=== PATIENT | male | born 1940 | race Caucasian/White ===

== ENCOUNTER 2021-08-01 08:46 | Inpatient (IN) | payer MEDICARE ==
[2021-08-01 09:44] LABS: Prothrombin Time 10.9 sec (9.5-12.1)
[2021-08-01 09:48] LABS: #Monocytes 0.6 10x3/uL (0.0-1.1); #Neutrophils 3.9 10x3/uL (1.5-8.4); %Basophils 0.2 % (0.0-2.0); %Lymphocytes 4.9 % (18.0-47.0); %Neutrophils 82.5 % (40.0-75.0); Hemoglobin 12.3 g/dL (13.5-17.5); Mean Corpuscular HGB CONC 33.7 g/dL (32.0-36.0); Mean Corpuscular Hemoglobin 31.7 pg (27.0-33.0); Mean Corpuscular Volume 94.1 fl (81.2-95.1); Mean Platelet Volume 11.4 fl (7.4-10.4); Platelet Count 87 10x3/uL (150-450); RBC Distribution Width 12.7 % (11.5-14.5); Red Blood Cell (RBC) Count 3.88 10x6/uL (4.32-5.72); White Blood Cell (WBC) Count 4.7 10x3/uL (3.5-10.5)
[2021-08-01 09:52] LABS: ALT (SGPT) 17 U/L (8-55); AST (SGOT) 27 U/L (5-34); Albumin 4.2 g/dL (3.4-4.8); Alkaline Phosphatase 66 U/L (40-110); Anion Gap 22 mmol/L (10-20); Bilirubin, Total 0.4 mg/dL (0.2-1.2); CK (CPK) 176 U/L (30-200); Calc. Creatinine Clearance 0 mL/min (70-130); Calcium 8.6 mg/dL (7.8-10.44); Carbon Dioxide 12 mmol/L (23-31); Chloride 105 mmol/L (98-107); Globulin 2.8 g/dL (2.4-3.5); Glucose 104 mg/dL (83-110); Lipase 65 U/L (8-78); Magnesium 2.7 mg/dL (1.6-2.6); Potassium 6.1 mmol/L (3.5-5.1); Sodium 133 mmol/L (136-145)
[2021-08-01 10:03] LABS: BUN (Urea Nitrogen) 151 mg/dL (8.4-25.7)
[2021-08-01 10:13] LABS: Platelet Morphology Comment Appears Decreased; RBC Morphology Normal
[2021-08-01] MEDS ORDERED: Calcium Gluc 4.6 MEQ/10 ML (100 MG/ML) ONE (10:44)
[2021-08-01] MEDS ORDERED: Sodium Bicarb 50 MEQ/50 ML VIAL ONE (10:45)
[2021-08-01] MEDS ORDERED: Sodium Bicarb 50 MEQ/50 ML Abboject 8.4% SYRINGE ONE (10:45)
[2021-08-01] MEDS ORDERED: Insulin Regular 300 UNITS/3 ML VIAL ONE (10:45)
[2021-08-01 12:28] LABS: Bilirubin Neg (Negative); Blood, Urine Negative (Negative); Clarity Clear (Clear); Glucose, Urine (Dipstick) Normal (Negative); Ketone, Urine Negative (Negative); Leukocyte Negative (Negative); Nitrite Negative (Negative); Protein, Urine (Dipstick) Negative (Neg-Trace); Specific Gravity, Urine 1.015 (1.002-1.036); Urobilinogen Normal mg/dL (Less than 2)
[2021-08-01 13:18] LABS: SARS-CoV-2 NAA Rapid Test Not Detected (NotDetected)
[2021-08-01 14:32] VITALS: BMI 23.3
[2021-08-01] MEDS ORDERED: Acetaminophen 325 MG TAB PO PRN (16:10)
[2021-08-01 16:11] LABS: Anion Gap 19 mmol/L (10-20); Calc. Creatinine Clearance 17 mL/min (70-130); Calcium 9.4 mg/dL (7.8-10.44); Carbon Dioxide 15 mmol/L (23-31); Chloride 104 mmol/L (98-107); Glucose 112 mg/dL (83-110); Potassium 5.7 mmol/L (3.5-5.1); Sodium 132 mmol/L (136-145)
[2021-08-01 16:20] LABS: BUN (Urea Nitrogen) 135 mg/dL (8.4-25.7)
[2021-08-02 04:43] LABS: Platelet Count 84 10x3/uL (150-450)
[2021-08-02 04:44] LABS: Mean Corpuscular HGB CONC 34.2 g/dL (32.0-36.0); Mean Corpuscular Hemoglobin 31.8 pg (27.0-33.0); RBC Distribution Width 12.6 % (11.5-14.5); Red Blood Cell (RBC) Count 4.71 10x6/uL (4.32-5.72); White Blood Cell (WBC) Count 4.2 10x3/uL (3.5-10.5)
[2021-08-02 04:48] LABS: Anion Gap 20 mmol/L (10-20); Calc. Creatinine Clearance 19 mL/min (70-130); Calcium 9.6 mg/dL (7.8-10.44); Carbon Dioxide 15 mmol/L (23-31); Chloride 109 mmol/L (98-107); Glucose 134 mg/dL (83-110); Sodium 137 mmol/L (136-145)
[2021-08-02 04:52] LABS: Potassium 6.6 mmol/L (3.5-5.1)
[2021-08-02 04:59] LABS: BUN (Urea Nitrogen) 121 mg/dL (8.4-25.7)
[2021-08-02] MEDS: Levothyroxine Sodium 75 MCG TAB PO SCH (05:13)
[2021-08-02] MEDS ORDERED: Dextrose 50% Abboject 50 ML SYRINGE SLOW IVP PRN (05:45)
[2021-08-02 05:50] LABS: Platelet Morphology Comment Appears Decreased; RBC Morphology Normal
[2021-08-02 05:53] LABS: MDiff Complete? YES
[2021-08-02 05:57] LABS: Band 3 % (5-11); Lymphocytes 7 % (21-51); Monocytes 17 % (0-10); Neutrophil 73 % (42-75)
[2021-08-02] MEDS ORDERED: Insulin Regular 300 UNITS/3 ML VIAL IVP SCH (06:00)
[2021-08-02] MEDS ORDERED: Calcium Gluc 4.6 MEQ/10 ML (100 MG/ML) SLOW IVP SCH ×2 (06:00→08:00)
[2021-08-02] MEDS ORDERED: Albuterol Sulfate 2.5 mg/3 ml Neb NEB SCH (06:00)
[2021-08-02] MEDS ORDERED: Dextrose 10% in Water 250 ML IV SCH (06:30)
[2021-08-02] MEDS: Famotidine 20 MG TAB PO SCH (09:24)
[2021-08-02] MEDS: Sodium Chloride 0.45% 1,000 ML IV SCH ×2 (09:26→23:13)
[2021-08-02 10:34] LABS: Anion Gap 18 mmol/L (10-20); Calc. Creatinine Clearance 19 mL/min (70-130); Calcium 10.4 mg/dL (7.8-10.44); Carbon Dioxide 17 mmol/L (23-31); Chloride 106 mmol/L (98-107); Glucose 143 mg/dL (83-110); Potassium 5.6 mmol/L (3.5-5.1); Sodium 135 mmol/L (136-145)
[2021-08-02 10:43] LABS: BUN (Urea Nitrogen) 118 mg/dL (8.4-25.7)
[2021-08-02 18:07] LABS: Anion Gap 17 mmol/L (10-20); BUN (Urea Nitrogen) 124 mg/dL (8.4-25.7); Calc. Creatinine Clearance 21 mL/min (70-130); Calcium 9.6 mg/dL (7.8-10.44); Carbon Dioxide 19 mmol/L (23-31); Chloride 106 mmol/L (98-107); Glucose 142 mg/dL (83-110); Potassium 5.9 mmol/L (3.5-5.1); Sodium 136 mmol/L (136-145)
[2021-08-02] MEDS ORDERED: LOKELMA 10 GM PACKET PO SCH (18:45)
[2021-08-02] MEDS: Tamsulosin HCl 0.4 MG CAP PO SCH (21:14)
[2021-08-03] MEDS ORDERED: Albumin 25% 25 GM/100 ML BOT IVPB SCH ×2 (03:45→04:00)
[2021-08-03 04:33] LABS: Hemoglobin 13.5 g/dL (13.5-17.5); Mean Corpuscular Hemoglobin 31.6 pg (27.0-33.0); Platelet Count 63 10x3/uL (150-450); RBC Distribution Width 12.8 % (11.5-14.5); Red Blood Cell (RBC) Count 4.27 10x6/uL (4.32-5.72); White Blood Cell (WBC) Count 3.5 10x3/uL (3.5-10.5)
[2021-08-03 04:41] LABS: Anion Gap 17 mmol/L (10-20); BUN (Urea Nitrogen) 111 mg/dL (8.4-25.7); Calc. Creatinine Clearance 22 mL/min (70-130); Calcium 9.2 mg/dL (7.8-10.44); Carbon Dioxide 17 mmol/L (23-31); Chloride 106 mmol/L (98-107); Glucose 132 mg/dL (83-110); Potassium 5.7 mmol/L (3.5-5.1); Sodium 134 mmol/L (136-145)
[2021-08-03] MEDS ORDERED: Sodium Chloride 0.9% 500 ML IV SCH (05:45)
[2021-08-03] MEDS ORDERED: Sodium Bicarbonate 150 MEQ in Dextrose 5% in Water 1,000 ML IV ONE (05:45)
[2021-08-03] MEDS ORDERED: Sodium Bicarbonate 75 MEQ in Dextrose 5% in Water 500 ML IV SCH (06:00)
[2021-08-03 06:07] LABS: MDiff Complete? YES
[2021-08-03 06:08] LABS: RBC Morphology Normal
[2021-08-03 06:09] LABS: Platelet Morphology Comment Appears Decreased
[2021-08-03] MEDS: Levothyroxine Sodium 75 MCG TAB PO SCH (06:09)
[2021-08-03 06:10] LABS: Band 10 % (5-11); Eosinophils 1 % (0-10); Lymphocytes 10 % (21-51); Monocytes 19 % (0-10); Neutrophil 59 % (42-75)
[2021-08-03] MEDS ORDERED: LOKELMA 10 GM PACKET PO SCH (09:00)
[2021-08-03 10:23] LABS: Iron 51 ug/dL (65-175); Iron Binding Capacity, Total 206 mcg/dL (261-462)
[2021-08-03 10:23] LABS: Anion Gap 13 mmol/L (10-20); BUN (Urea Nitrogen) 106 mg/dL (8.4-25.7); Calc. Creatinine Clearance 24 mL/min (70-130); Calcium 8.8 mg/dL (7.8-10.44); Carbon Dioxide 19 mmol/L (23-31); Chloride 108 mmol/L (98-107); Glucose 124 mg/dL (83-110); Iron 49 ug/dL (65-175); Iron Binding Capacity, Total 210 mcg/dL (261-462); Potassium 5.1 mmol/L (3.5-5.1); Sodium 135 mmol/L (136-145)
[2021-08-03] MEDS: Famotidine 20 MG TAB PO SCH (10:35)
[2021-08-03] MEDS: Albumin 25% 25 GM/100 ML BOT IVPB SCH ×3 (10:37→21:03)
[2021-08-03] MEDS: Sodium Bicarbonate 75 MEQ in Dextrose 5% in Water 500 ML IV SCH (14:55)
[2021-08-03] MEDS: Tamsulosin HCl 0.4 MG CAP PO SCH (21:03)
[2021-08-04] MEDS: Sodium Bicarbonate 75 MEQ in Dextrose 5% in Water 500 ML IV SCH (00:27)
[2021-08-04 04:15] LABS: Hemoglobin 11.2 g/dL (13.5-17.5); Mean Corpuscular HGB CONC 35.4 g/dL (32.0-36.0); Mean Corpuscular Volume 90.3 fl (81.2-95.1); Mean Platelet Volume 11.1 fl (7.4-10.4); Platelet Count 66 10x3/uL (150-450); RBC Distribution Width 12.5 % (11.5-14.5); White Blood Cell (WBC) Count 2.7 10x3/uL (3.5-10.5)
[2021-08-04 04:17] LABS: Anion Gap 16 mmol/L (10-20); BUN (Urea Nitrogen) 68 mg/dL (8.4-25.7); Calc. Creatinine Clearance 32 mL/min (70-130); Calcium 9.3 mg/dL (7.8-10.44); Carbon Dioxide 24 mmol/L (23-31); Chloride 104 mmol/L (98-107); Glucose 113 mg/dL (83-110); Potassium 4.6 mmol/L (3.5-5.1); Sodium 139 mmol/L (136-145)
[2021-08-04] MEDS: Albumin 25% 25 GM/100 ML BOT IVPB SCH (05:07)
[2021-08-04] MEDS: Levothyroxine Sodium 75 MCG TAB PO SCH (06:26)
[2021-08-04 06:41] LABS: MDiff Complete? YES
[2021-08-04 06:42] LABS: Platelet Morphology Comment Appears Decreased
[2021-08-04 06:44] LABS: Band 6 % (5-11); Eosinophils 1 % (0-10); Lymphocytes 19 % (21-51); Monocytes 19 % (0-10); Neutrophil 55 % (42-75)
[2021-08-04 06:45] LABS: RBC Morphology Normal
[2021-08-04] MEDS: Famotidine 20 MG TAB PO SCH (08:59)
[2021-08-04] MEDS: Sodium Chloride 0.45% 1,000 ML IV SCH (18:27)
[2021-08-04] MEDS: Tamsulosin HCl 0.4 MG CAP PO SCH (20:43)
[2021-08-05 04:47] LABS: Anion Gap 16 mmol/L (10-20); BUN (Urea Nitrogen) 46 mg/dL (8.4-25.7); Calc. Creatinine Clearance 36 mL/min (70-130); Calcium 9.4 mg/dL (7.8-10.44); Carbon Dioxide 23 mmol/L (23-31); Chloride 104 mmol/L (98-107); Glucose 102 mg/dL (83-110); Potassium 4.4 mmol/L (3.5-5.1); Sodium 139 mmol/L (136-145)
[2021-08-05 04:48] LABS: Hemoglobin 11.8 g/dL (13.5-17.5); Mean Corpuscular HGB CONC 34.6 g/dL (32.0-36.0); Mean Corpuscular Hemoglobin 31.8 pg (27.0-33.0); Mean Corpuscular Volume 91.9 fl (81.2-95.1); Mean Platelet Volume 10.9 fl (7.4-10.4); Platelet Count 76 10x3/uL (150-450); RBC Distribution Width 12.7 % (11.5-14.5); Red Blood Cell (RBC) Count 3.71 10x6/uL (4.32-5.72); White Blood Cell (WBC) Count 5.3 10x3/uL (3.5-10.5)
[2021-08-05] MEDS: Levothyroxine Sodium 75 MCG TAB PO SCH (05:35)
[2021-08-05] MEDS: Sodium Chloride 0.45% 1,000 ML IV SCH ×2 (05:41→16:11)
[2021-08-05 06:44] LABS: MDiff Complete? YES
[2021-08-05 06:45] LABS: Platelet Morphology Comment Appears Decreased
[2021-08-05 06:46] LABS: Band 3 % (5-11); Eosinophils 1 % (0-10); Lymphocytes 16 % (21-51); Monocytes 21 % (0-10); Neutrophil 59 % (42-75)
[2021-08-05] MEDS: Famotidine 20 MG TAB PO SCH (09:55)
[2021-08-05] MEDS ORDERED: Polyethylene Glycol 3350 17 GM Packet PO SCH (12:00)
[2021-08-05] MEDS ORDERED: chlorproMAZINE HCl 25 MG TAB PO SCH (12:00)
[2021-08-05] MEDS ORDERED: Docusate 100 MG CAP PO SCH (12:00)
[2021-08-05] MEDS ORDERED: chlorproMAZINE HCl 25 MG TAB PO PRN (16:00)
[2021-08-05] MEDS: Tamsulosin HCl 0.4 MG CAP PO SCH (21:33)
[2021-08-06] MEDS ORDERED: Promethazine HCl 12.5 MG in Sodium Chloride 0.9% 50 ML IVPB SCH (01:45)
[2021-08-06 04:57] LABS: Anion Gap 16 mmol/L (10-20); BUN (Urea Nitrogen) 36 mg/dL (8.4-25.7); Calc. Creatinine Clearance 40 mL/min (70-130); Calcium 9.5 mg/dL (7.8-10.44); Carbon Dioxide 21 mmol/L (23-31); Chloride 105 mmol/L (98-107); Glucose 115 mg/dL (83-110); Potassium 4.8 mmol/L (3.5-5.1); Sodium 137 mmol/L (136-145)
[2021-08-06] MEDS: Levothyroxine Sodium 75 MCG TAB PO SCH (05:39)
[2021-08-06] MEDS: Sodium Chloride 0.45% 1,000 ML IV SCH (05:45)
[2021-08-06] MEDS: Famotidine 20 MG TAB PO SCH (08:30)
[2021-08-06] MEDS: Tamsulosin HCl 0.4 MG CAP PO SCH (21:06)
[2021-08-07] MEDS: Sodium Chloride 0.45% 1,000 ML IV SCH (01:56)
[2021-08-07 04:44] LABS: #Eosinphils 0.1 10x3/uL (0.0-0.5); #Monocytes 0.6 10x3/uL (0.0-1.1); #Neutrophils 4.3 10x3/uL (1.5-8.4); %Basophils 0.3 % (0.0-2.0); %Eosinophils 1.8 % (0.0-6.0); %Lymphocytes 17.2 % (18.0-47.0); %Neutrophils 69.9 % (40.0-75.0); Hemoglobin 12.3 g/dL (13.5-17.5); Mean Corpuscular HGB CONC 34.5 g/dL (32.0-36.0); Mean Corpuscular Hemoglobin 31.6 pg (27.0-33.0); Mean Corpuscular Volume 91.8 fl (81.2-95.1); Mean Platelet Volume 10.9 fl (7.4-10.4); RBC Distribution Width 12.5 % (11.5-14.5); Red Blood Cell (RBC) Count 3.89 10x6/uL (4.32-5.72); White Blood Cell (WBC) Count 6.1 10x3/uL (3.5-10.5)
[2021-08-07 04:45] LABS: Platelet Count 118 10x3/uL (150-450)
[2021-08-07 04:51] LABS: Anion Gap 16 mmol/L (10-20); BUN (Urea Nitrogen) 36 mg/dL (8.4-25.7); Calc. Creatinine Clearance 40 mL/min (70-130); Calcium 9.3 mg/dL (7.8-10.44); Carbon Dioxide 23 mmol/L (23-31); Chloride 104 mmol/L (98-107); Glucose 102 mg/dL (83-110); Potassium 4.5 mmol/L (3.5-5.1); Sodium 138 mmol/L (136-145)
[2021-08-07] MEDS: Levothyroxine Sodium 75 MCG TAB PO SCH (05:36)
[2021-08-07] MEDS: Famotidine 20 MG TAB PO SCH (10:12)
[2021-08-07] MEDS: Tamsulosin HCl 0.4 MG CAP PO SCH (21:14)
[2021-08-08 04:36] LABS: #Eosinphils 0.2 10x3/uL (0.0-0.5); #Monocytes 0.6 10x3/uL (0.0-1.1); #Neutrophils 2.9 10x3/uL (1.5-8.4); %Basophils 0.4 % (0.0-2.0); %Eosinophils 3.1 % (0.0-6.0); %Lymphocytes 26.2 % (18.0-47.0); %Monocytes 10.8 % (0.0-10.0); %Neutrophils 57.7 % (40.0-75.0); Hemoglobin 11.9 g/dL (13.5-17.5); Mean Corpuscular HGB CONC 34.8 g/dL (32.0-36.0); Mean Corpuscular Hemoglobin 32.4 pg (27.0-33.0); Mean Corpuscular Volume 93.2 fl (81.2-95.1); Mean Platelet Volume 10.6 fl (7.4-10.4); Platelet Count 141 10x3/uL (150-450); RBC Distribution Width 12.1 % (11.5-14.5); Red Blood Cell (RBC) Count 3.67 10x6/uL (4.32-5.72); White Blood Cell (WBC) Count 5.1 10x3/uL (3.5-10.5)
[2021-08-08 05:12] LABS: Anion Gap 14 mmol/L (10-20); BUN (Urea Nitrogen) 36 mg/dL (8.4-25.7); Calc. Creatinine Clearance 40 mL/min (70-130); Calcium 9.5 mg/dL (7.8-10.44); Carbon Dioxide 23 mmol/L (23-31); Chloride 105 mmol/L (98-107); Glucose 93 mg/dL (83-110); Potassium 4.4 mmol/L (3.5-5.1); Sodium 138 mmol/L (136-145)
[2021-08-08] MEDS: Levothyroxine Sodium 75 MCG TAB PO SCH (06:00)
[2021-08-08] MEDS: Famotidine 20 MG TAB PO SCH (09:42)
[2021-08-08] MEDS ORDERED: Polyethylene Glycol 3350 17 GM Packet PO PRN (09:47)
[2021-08-08 12:43] VITALS: BP 117/86; TEMP 96.1
[2021-08-08 22:18] LABS: SARS-CoV-2 PCR by NAA Not Detected (NotDetected)
== END 2021-08-08 14:25 | DRG 683 ==
LOC: CSHERS 08:46 → CSHIMCU 13:41 → CSHTELE 08-04 16:00
PROVIDERS: ADMIT Internal Medicine; ATTEND Internal Medicine
DX: N17.9 Acute kidney failure, unspecified (principal); E87.2 Acidosis; E87.1 Hypo-osmolality and hyponatremia; Z20.822 Contact with and (suspected) exposure to COVID-19; E87.5 Hyperkalemia; R33.9 Retention of urine, unspecified; N13.30 Unspecified hydronephrosis; I12.9 Hypertensive chronic kidney disease with stage 1 through stage 4 chronic kidney disease, or unspecified chronic kidney disease; N18.30 Chronic kidney disease, stage 3 unspecified; G40.909 Epilepsy, unspecified, not intractable, without status epilepticus; D63.1 Anemia in chronic kidney disease; D69.6 Thrombocytopenia, unspecified; R40.4 Transient alteration of awareness; R31.9 Hematuria, unspecified; Z79.899 Other long term (current) drug therapy; Z79.891 Long term (current) use of opiate analgesic; Z79.890 Hormone replacement therapy
CPT/HCPCS: 36415; 51702; 71045; 74176; 76770; 80048; 80053; 81003; 82533; 82550; 82607; 82746; 83540; 83550; 83690; 83735; 83880; 84153; 84443; 84484; 85025; 85060; 85610; 85730; 93005; 93010; 94640; 94760; 96374; 96375; J0610; J1815; J2550; J7030; J7060; J7070; J7611; P9047; Q0161; U0002; U0003; U0005

== ENCOUNTER 2021-09-03 08:33 | Inpatient (IN) | payer MEDICARE ==
[2021-09-03 09:51] LABS: #Basophils 0.1 10x3/uL (0.0-0.2); #Monocytes 1.8 10x3/uL (0.0-1.1); #Neutrophils 13.8 10x3/uL (1.5-8.4); %Basophils 0.4 % (0.0-2.0); %Eosinophils 0.1 % (0.0-6.0); %Lymphocytes 3.9 % (18.0-47.0); %Monocytes 10.6 % (0.0-10.0); %Neutrophils 82.7 % (40.0-75.0); Hemoglobin 12.4 g/dL (13.5-17.5); Mean Corpuscular HGB CONC 33.4 g/dL (32.0-36.0); Mean Corpuscular Hemoglobin 31.3 pg (27.0-33.0); Mean Corpuscular Volume 93.7 fl (81.2-95.1); Mean Platelet Volume 8.9 fl (7.4-10.4); Platelet Count 245 10x3/uL (150-450); RBC Distribution Width 12.3 % (11.5-14.5); Red Blood Cell (RBC) Count 3.96 10x6/uL (4.32-5.72); White Blood Cell (WBC) Count 16.6 10x3/uL (3.5-10.5)
[2021-09-03 10:06] LABS: Bilirubin Neg (Negative); Blood, Urine 150 (Negative); Clarity Cloudy (Clear); Glucose, Urine (Dipstick) Normal (Negative); Ketone, Urine Negative (Negative); Leukocyte 500 (Negative); Nitrite Negative (Negative); Protein, Urine (Dipstick) 500 mg/dl (Neg-Trace); Urobilinogen Normal mg/dL (Less than 2)
[2021-09-03 10:11] LABS: ALT (SGPT) 9 U/L (8-55); AST (SGOT) 26 U/L (5-34); Albumin 3.5 g/dL (3.4-4.8); Alkaline Phosphatase 63 U/L (40-110); Anion Gap 16 mmol/L (10-20); BUN (Urea Nitrogen) 28 mg/dL (8.4-25.7); Bilirubin, Total 0.4 mg/dL (0.2-1.2); CK (CPK) 39 U/L (30-200); Calc. Creatinine Clearance 0 mL/min (70-130); Calcium 9.4 mg/dL (7.8-10.44); Carbon Dioxide 22 mmol/L (23-31); Chloride 98 mmol/L (98-107); Globulin 3.2 g/dL (2.4-3.5); Glucose 106 mg/dL (83-110); Potassium 4.7 mmol/L (3.5-5.1); Protein, Total 6.7 g/dL (5.8-8.1); Sodium 131 mmol/L (136-145)
[2021-09-03 10:20] LABS: Bacteria/HPF 4+ HPF (None Seen); Squamous Epithelial None Seen HPF (0-3); WBC/HPF Greater than 50 HPF (0-3)
[2021-09-03] MEDS ORDERED: cefTRIAXone\\ROCEPHIN 2 GM VIAL ONE (11:36)
[2021-09-03] MEDS ORDERED: Ondansetron PF 4 MG/2 ML Vial IVP PRN (14:20)
[2021-09-03] MEDS ORDERED: Ondansetron ODT 4 MG TAB PO PRN (14:20)
[2021-09-03] MEDS ORDERED: Acetaminophen 325 MG TAB PO PRN (14:20)
[2021-09-03] MEDS ORDERED: Sodium Chloride 0.9% 1,000 ML IV SCH (14:30)
[2021-09-03] MEDS: Heparin 5,000 UNITS/ML VIAL SC SCH ×2 (14:48→20:59)
[2021-09-03 15:15] VITALS: BMI 22.6
[2021-09-03] MEDS: Tamsulosin HCl 0.4 MG CAP PO SCH (20:59)
[2021-09-04 00:15] LABS: SARS-CoV-2 PCR by NAA Not Detected (NotDetected)
[2021-09-04 04:31] LABS: #Neutrophils 7.5 10x3/uL (1.5-8.4); %Basophils 0.3 % (0.0-2.0); %Eosinophils 0.4 % (0.0-6.0); %Lymphocytes 13.8 % (18.0-47.0); %Monocytes 10.1 % (0.0-10.0); Hemoglobin 10.3 g/dL (13.5-17.5); Mean Corpuscular HGB CONC 33.2 g/dL (32.0-36.0); Mean Corpuscular Hemoglobin 31.2 pg (27.0-33.0); Mean Corpuscular Volume 93.9 fl (81.2-95.1); Platelet Count 210 10x3/uL (150-450); RBC Distribution Width 12.5 % (11.5-14.5); White Blood Cell (WBC) Count 10.1 10x3/uL (3.5-10.5)
[2021-09-04 04:39] LABS: Anion Gap 11 mmol/L (10-20); BUN (Urea Nitrogen) 24 mg/dL (8.4-25.7); Calc. Creatinine Clearance 39 mL/min (70-130); Calcium 8.4 mg/dL (7.8-10.44); Carbon Dioxide 25 mmol/L (23-31); Chloride 108 mmol/L (98-107); Glucose 95 mg/dL (83-110); Magnesium 2.1 mg/dL (1.6-2.6); Potassium 4.9 mmol/L (3.5-5.1); Sodium 139 mmol/L (136-145)
[2021-09-04] MEDS: Levothyroxine Sodium 75 MCG TAB PO SCH (06:29)
[2021-09-04] MEDS: Heparin 5,000 UNITS/ML VIAL SC SCH ×3 (09:36→20:47)
[2021-09-04] MEDS: Senokot S 8.6-50 MG TAB PO SCH ×2 (09:36→20:47)
[2021-09-04] MEDS: Polyethylene Glycol 3350 17 GM Packet PO SCH (09:37)
[2021-09-04] MEDS: cefTRIAXone\\ROCEPHIN 2 GM in Sodium Chloride 0.9% 100 ML IVPB SCH (15:17)
[2021-09-04] MEDS: Tamsulosin HCl 0.4 MG CAP PO SCH (20:47)
[2021-09-05 05:06] LABS: #Basophils 0.1 10x3/uL (0.0-0.2); #Eosinphils 0.1 10x3/uL (0.0-0.5); #Monocytes 0.8 10x3/uL (0.0-1.1); #Neutrophils 6.9 10x3/uL (1.5-8.4); %Basophils 0.6 % (0.0-2.0); %Eosinophils 0.7 % (0.0-6.0); %Lymphocytes 14.8 % (18.0-47.0); %Neutrophils 71.9 % (40.0-75.0); Hemoglobin 10.9 g/dL (13.5-17.5); Mean Corpuscular Hemoglobin 31.4 pg (27.0-33.0); Mean Corpuscular Volume 95.1 fl (81.2-95.1); Mean Platelet Volume 9.3 fl (7.4-10.4); Platelet Count 229 10x3/uL (150-450); RBC Distribution Width 12.5 % (11.5-14.5); Red Blood Cell (RBC) Count 3.47 10x6/uL (4.32-5.72); White Blood Cell (WBC) Count 9.7 10x3/uL (3.5-10.5)
[2021-09-05 05:09] LABS: Anion Gap 12 mmol/L (10-20); BUN (Urea Nitrogen) 18 mg/dL (8.4-25.7); Calc. Creatinine Clearance 50 mL/min (70-130); Calcium 8.5 mg/dL (7.8-10.44); Carbon Dioxide 25 mmol/L (23-31); Cardiac Risk 4.2 (Less than 4.5); Chloride 107 mmol/L (98-107); Cholesterol 123 mg/dl (< 200 Desired); Glucose 88 mg/dL (83-110); HDL Cholesterol 29 mg/dL (>60 Neg Risk); LDL Cholesterol, Calculated 73 mg/dL; Potassium 4.1 mmol/L (3.5-5.1); Sodium 140 mmol/L (136-145); Triglycerides 106 mg/dL (Less than 150)
[2021-09-05] MEDS: Levothyroxine Sodium 75 MCG TAB PO SCH (05:18)
[2021-09-05] MEDS: Polyethylene Glycol 3350 17 GM Packet PO SCH (10:16)
[2021-09-05] MEDS: Heparin 5,000 UNITS/ML VIAL SC SCH ×3 (10:16→20:59)
[2021-09-05] MEDS: Senokot S 8.6-50 MG TAB PO SCH ×2 (10:16→20:58)
[2021-09-05 13:03] LABS: Hemoglobin A1c 5.5 % (4.0-6.0)
[2021-09-05] MEDS: cefTRIAXone\\ROCEPHIN 2 GM in Sodium Chloride 0.9% 100 ML IVPB SCH (15:19)
[2021-09-05] MEDS: Tamsulosin HCl 0.4 MG CAP PO SCH (20:58)
[2021-09-06] MEDS: Levothyroxine Sodium 75 MCG TAB PO SCH (05:18)
[2021-09-06 06:07] LABS: Anion Gap 15 mmol/L (10-20); BUN (Urea Nitrogen) 19 mg/dL (8.4-25.7); Calc. Creatinine Clearance 48 mL/min (70-130); Calcium 8.8 mg/dL (7.8-10.44); Carbon Dioxide 25 mmol/L (23-31); Chloride 107 mmol/L (98-107); Glucose 88 mg/dL (83-110); Potassium 4.8 mmol/L (3.5-5.1); Sodium 142 mmol/L (136-145)
[2021-09-06 06:30] LABS: #Basophils 0.1 10x3/uL (0.0-0.2); #Eosinphils 0.1 10x3/uL (0.0-0.5); #Monocytes 0.7 10x3/uL (0.0-1.1); #Neutrophils 5.6 10x3/uL (1.5-8.4); %Basophils 0.8 % (0.0-2.0); %Eosinophils 1.3 % (0.0-6.0); %Lymphocytes 19.5 % (18.0-47.0); %Neutrophils 66.6 % (40.0-75.0); Hemoglobin 11.4 g/dL (13.5-17.5); Mean Corpuscular HGB CONC 32.9 g/dL (32.0-36.0); Mean Corpuscular Hemoglobin 31.1 pg (27.0-33.0); Mean Corpuscular Volume 94.5 fl (81.2-95.1); Mean Platelet Volume 9.2 fl (7.4-10.4); Platelet Count 245 10x3/uL (150-450); RBC Distribution Width 12.6 % (11.5-14.5); Red Blood Cell (RBC) Count 3.66 10x6/uL (4.32-5.72); White Blood Cell (WBC) Count 8.5 10x3/uL (3.5-10.5)
[2021-09-06 07:59] VITALS: BP 113/66; TEMP 98.4
[2021-09-06] MEDS ORDERED: Ciprofloxacin 500 MG TAB PO SCH ×2 (08:30→20:00)
[2021-09-06] MEDS: Heparin 5,000 UNITS/ML VIAL SC SCH (10:07)
[2021-09-06] MEDS: Senokot S 8.6-50 MG TAB PO SCH (10:07)
[2021-09-06] MEDS: Polyethylene Glycol 3350 17 GM Packet PO SCH (10:07)
== END 2021-09-06 10:39 | disposition home or self-care (01) | DRG 698 ==
LOC: CSHERS 08:33 → CSHTELE 13:45
PROVIDERS: ADMIT Family Medicine; ATTEND Family Medicine
DX: T83.511A Infection and inflammatory reaction due to indwelling urethral catheter, initial encounter (principal); A41.9 Sepsis, unspecified organism; N17.9 Acute kidney failure, unspecified; Z20.822 Contact with and (suspected) exposure to COVID-19; N39.0 Urinary tract infection, site not specified; I12.9 Hypertensive chronic kidney disease with stage 1 through stage 4 chronic kidney disease, or unspecified chronic kidney disease; D63.1 Anemia in chronic kidney disease; N18.30 Chronic kidney disease, stage 3 unspecified; E03.9 Hypothyroidism, unspecified; Z98.890 Other specified postprocedural states
CPT/HCPCS: 36415; 71045; 80048; 80053; 80061; 81003; 81015; 82550; 83036; 83605; 83735; 84443; 85025; 87040; 87077; 87086; 87186; 93005; 94760; 96365; J0696; J1644; J3490; J7050; U0003; U0005